=== PATIENT | male | born 1990 | race African-American/Black ===

== ENCOUNTER 2019-08-08 21:51 | Emergency (ER) | payer SELFPAY ==
[~2019-08-08] VITALS: Ht 182.9 cm; Wt 102.0 kg
[2019-08-08] MEDS ORDERED: IBUPROFEN 600MG TABLET PO STA (23:13)
[2019-08-08] MEDS ORDERED: ACETAMINOPHEN 325MG TABLET PO STA (23:13)
[2019-08-08] MEDS ORDERED: SODIUM CHLORIDE 0.9% 1,000 ML IV ONE (23:13)
[2019-08-08] MEDS ORDERED: ONDANSETRON 4MG ODT PO ONE (23:15)
[2019-08-09 01:07] VITALS: BP 132/74
== END 2019-08-09 01:33 | disposition home or self-care (01) ==
LOC: ER 21:51
DX: B34.9 Viral infection, unspecified (principal); R05 Cough
CPT/HCPCS: 71045; 96360; 99284; J7030; Q0162; Z7610

== ENCOUNTER 2020-04-20 23:21 | Emergency (ER) | payer SELFPAY ==
[~2020-04-20] VITALS: Ht 182.9 cm; Wt 114.0 kg
[2020-04-21] MEDS ORDERED: TETANUS, DIPHTHERIA, PERTUSSIS VAC/PF 0.5ML (>7YR OLD) IM ONE
[2020-04-21] MEDS ORDERED: LIDOCAINE HCL/EPINEPHRINE 1%-EPI 1:100,000 20 ML VIAL INFIL NR
[2020-04-21] MEDS ORDERED: BACITRACIN ZINC OINT UDPKT TOP NR
[2020-04-21] MEDS ORDERED: LIDOCAINE HCL/EPINEPHRINE 1%-EPI 1:100,000 20 ML VIAL ONE (01:00)
[2020-04-21 02:26] VITALS: BP 115/71
== END 2020-04-21 02:31 | disposition home or self-care (01) ==
LOC: ER 23:21
DX: S91.312A Laceration without foreign body, left foot, initial encounter (principal); V29.49XA Motorcycle driver injured in collision with other motor vehicles in traffic accident, initial encounter; Y93.89 Activity, other specified; Y92.89 Other specified places as the place of occurrence of the external cause; Y99.8 Other external cause status
CPT/HCPCS: 12002; 73610; 90471; 90715; 93005; 99284; J3490; Z7610

== ENCOUNTER 2020-05-01 13:22 | Emergency (ER) | payer SELFPAY ==
[~2020-05-01] VITALS: Ht 182.9 cm; Wt 106.0 kg
[2020-05-01 13:28] VITALS: BP 141/78
== END 2020-05-01 13:50 | disposition home or self-care (01) ==
LOC: ER 13:22
DX: Z48.02 Encounter for removal of sutures (principal)
CPT/HCPCS: 99281

== ENCOUNTER 2020-05-04 14:37 | Emergency (ER) | payer SELFPAY ==
[~2020-05-04] VITALS: Ht 182.9 cm; Wt 104.0 kg
[2020-05-04 14:52] VITALS: BP 124/103
[2020-05-04] MEDS ORDERED: BACITRACIN ZINC OINT UDPKT TOP ONE (17:30)
== END 2020-05-04 17:42 | disposition home or self-care (01) ==
LOC: ER 14:52
DX: Z48.02 Encounter for removal of sutures (principal)
CPT/HCPCS: 99283

== ENCOUNTER 2020-08-09 20:07 | Emergency (ER) | payer SELFPAY ==
[~2020-08-09] VITALS: Ht 182.9 cm; Wt 107.0 kg
[2020-08-09] MEDS ORDERED: KETOROLAC 60MG/2ML VIAL IM STA (21:47)
[2020-08-09] MEDS ORDERED: AMOXICILLIN 500 MG CAPSULE PO ONE (22:30)
[2020-08-09] MEDS ORDERED: ACETAMINOPHEN WITH CODEINE 300/30MG TABLET PO ONE (22:30)
[2020-08-09] MEDS ORDERED: AMOXICILLIN 250MG CAPSULE PO NR (23:00)
[2020-08-09 23:29] VITALS: BP 139/94
== END 2020-08-09 23:40 | disposition home or self-care (01) ==
LOC: ER 20:07
DX: K02.9 Dental caries, unspecified (principal); F12.10 Cannabis abuse, uncomplicated
CPT/HCPCS: 96372; 99283; J1885

== ENCOUNTER 2023-08-08 21:42 | Emergency (ER) | payer SELFPAY ==
[~2023-08-08] VITALS: Ht 182.9 cm; Wt 97.0 kg
[2023-08-08 22:09] VITALS: BP 132/83; PULSE 100; RESP 18; TEMP 100.5; O2SAT 99
[2023-08-08] MEDS ORDERED: DEXAMETHASONE 10 MG/ML VIAL IM ONE (23:15)
[2023-08-08] MEDS ORDERED: IBUP-2030 MT (23:18)
[2023-08-08] MEDS ORDERED: AMOX-494 MT (23:18)
== END 2023-08-08 23:52 | disposition home or self-care (01) ==
LOC: ER 21:42
DX: J03.90 Acute tonsillitis, unspecified (principal); F12.10 Cannabis abuse, uncomplicated
CPT/HCPCS: 99283; 87430; 87070; 96372; J1100